=== PATIENT | female | born 1955 | race Caucasian/White ===

== ENCOUNTER 2018-02-07 08:38 | Day surgery (SDC) | payer BC ==
[~2018-02-07 08:38] MED LIST: Sodium Chloride 0.9% 10 ML Syringe FLUSH PRN
[2018-02-07] MEDS: Lactated Ringers 1,000 ML IV SCH (09:27)
--- NOTE | 2018-02-07 09:50 | PCM.PN ---
- General Info Date of Service: 02/07/18 - Review of Systems Systems Review Comment:: 62 y/o female here for colonoscopy. her recent history and physical is reviewed. There is been no significant change in her health status since then. It is been over 5 years since her last colonoscopy. I discussed the proposed colonoscopy with the patient. Risks such as but not limited to bleeding and GI injury reviewed. She appears to understand and agrees to proceed. - Patient Data Vitals - Most Recent: Last Vital Signs Temp 97.7 F 02/07/18 09:09 Pulse 49 L 02/07/18 09:09 Resp 18 02/07/18 09:09 BP 119/75 02/07/18 09:09 Pulse Ox 100 02/07/18 09:09 Weight - Most Recent: 72.575 kg Med Orders - Current: Current Medications Lactated Ringer's (Ringers, Lactated) 1,000 mls @ 125 mls/hr IV ASDIRECTED MARISA Last Admin: 02/07/18 09:27 Dose: 125 mls/hr Sodium Chloride (Saline Flush) 10 ml FLUSH ASDIRECTED PRN PRN Reason: Keep Vein Open - Problem List Review Problem List Initiated/Reviewed/Updated: Yes - My Orders Last 24 Hours: My Active Orders 02/07/18 08:30 Patient Status [ADT] Routine Peripheral IV Care [RC] . DIRECTED Verify Patient Consent Obtain [RC] ASDIRECTED Lactated Ringers [Ringers, Lactated] 1,000 ml IV ASDIRECTED Sodium Chloride 0.9% [Saline Flush] 10 ml FLUSH ASDIRECTED PRN Peripheral IV Insertion Adult [OM.PC] Routine - Assessment Assessment:: colon cancer screening - Plan Plan:: colonoscopy
[2018-02-07] MEDS ORDERED: Midazolam 1 MG/ML 2 ML SDV ONE ×2 (09:52→09:53)
[2018-02-07] MEDS ORDERED: fentaNYL 100 MCG/2 ML SDV ONE ×2 (09:52→09:53)
[2018-02-07] MEDS ORDERED: Propofol 200 MG/20 ML SDV ONE ×2 (09:52→09:53)
--- NOTE | 2018-02-07 10:31 | PCM.OPNOTE ---
- General Post-Op/Procedure Note Date of Surgery/Procedure: 02/07/18 Operative Procedure(s): Colonoscopy Findings: moderate sigmoid diverticulosis Moderate external hemorrhoids Pre Op Diagnosis: colon cancer screening Post-Op Diagnosis: diverticulosis. Hemorrhoids Anesthesia Technique: MAC Primary Surgeon: Quang Gray Pathology: none Output, Urine Amount: 0 EBL in mLs: 0 Complications: None Condition: Good Free Text/Narrative:: Intake & Output 02/06/18 02/07/18 02/07/18 22:59 06:59 14:59 Intake Total 800 Balance 800
--- NOTE | 2018-02-07 13:59 | OR ---
Date of Procedure: 02/07/2018 PREOPERATIVE DIAGNOSIS: Colon cancer screening. POSTOPERATIVE DIAGNOSES: Diverticulosis and hemorrhoids. OPERATIONS PERFORMED: Colonoscopy. INDICATIONS FOR SURGERY: This 62-year-old female presents today for colonoscopy. Her last colon exam was over 5 years ago. FINDINGS: The patient has a moderate degree of sigmoid diverticulosis, which does not appear to be acutely inflamed or otherwise complicated. She also has moderate-sized external hemorrhoids. The remainder of the colon appeared normal. DESCRIPTION OF PROCEDURE: The patient was taken to the operating room. She was given intravenous sedation, and with her in the left lateral decubitus position, digital rectal exam was performed showing no rectal masses. The Olympus colonoscope was inserted into the rectum. Retroflexed examination of the rectal canal was performed. The scope was then carefully advanced under direct visualization through the entire length of the colon until the cecum was reached. Cecal acquisition did require some hand pressure, but eventually with careful manipulation, the cecum was able to be entered and carefully viewed. The ileocecal valve and appendiceal orifice are able to be examined. The light was also noted to transilluminate the abdominal wall in the right lower quadrant. After examining the cecum, the scope was slowly withdrawn sequentially re-examining the colonic segments until the entire colon and rectum had been fully examined. The scope was then removed and the patient was taken from the operating room in satisfactory condition. ESTIMATED BLOOD LOSS: Zero. COMPLICATIONS: None. PROGNOSIS: Good. DANYA Gray MD /[id number]
== END 2018-02-07 11:52 | disposition home or self-care (01) ==
LOC: LL.SDS 08:38
PROVIDERS: ATTEND Surgery
DX: Z12.11 Encounter for screening for malignant neoplasm of colon (principal); K57.30 Diverticulosis of large intestine without perforation or abscess without bleeding; K64.4 Residual hemorrhoidal skin tags; Z79.2 Long term (current) use of antibiotics
CPT/HCPCS: J2250; J2704; J3010; J7120